=== PATIENT | male | born 1970 ===

== ENCOUNTER 2021-03-29 13:34 | Outpatient (CLI) | payer OTHER ==
--- NOTE | 2021-03-29 14:23 | Ultrasound Report ---
ULTRASOUND ABDOMEN, COMPLETE INDICATION: ELEVATED LIVER ENZYMES/ ABDOMINAL PAIN. COMPARISON: No relevant prior imaging study available. FINDINGS: Pancreas: Obscured by bowel gas. Abdominal Aorta: No significant abnormality. IVC: No significant abnormality. Liver: The liver measures 14 cm in length. No significant abnormality. Normal hepatopedal blood flow in the main portal vein. Gallbladder: No significant abnormality. Bile ducts: No significant abnormality. Common bile duct measures 3.6 mm. Kidneys: Right: 10.4 cm in length. No significant abnormality. Left: 9.5 cm in length. No signifi cant abnormality. Spleen: No significant abnormality. Free fluid: None. Additional Findings: None. IMPRESSION: No sonographic abnormality of the abdomen. Signer Name: Randy Gonzalez Jr, MD Signed: 03/29/2021 2:18 PM Workstation Name: [id number]
== END 2021-03-29 13:35 | disposition home or self-care (01) ==
LOC: US 13:34
PROVIDERS: ATTEND Specialist
DX: R10.9 Unspecified abdominal pain (principal); R94.5 Abnormal results of liver function studies
CPT/HCPCS: 76700